=== PATIENT | male | born 1985 | race African-American/Black ===

== ENCOUNTER 2019-07-10 21:40 | Emergency (ER) | payer MEDICAID ==
[~2019-07-10] VITALS: Ht 180.3 cm; Wt 74.8 kg
[~2019-07-10 21:40] MED LIST: AUGMENTIN 875-1 EAC1 ORAL; IBUPROFEN600 MG ORAL
[2019-07-10 22:00] VITALS: BP 140/92
--- NOTE | 2019-07-10 22:00 | NUR ---
ED Nurse Note: Patient brought in by ambulance [id number] from home d/t abdominal pain for 3 days. Patient reports coughing up bright red blood earlier today. Patient aao x 4 and ambulatory with steady gait. Patient placed in gown and satellite project site monitor. IV established on right AC 18g, asymptomatic, intact, and patent. Patient in stable condition.
--- NOTE | 2019-07-10 22:08 | NUR ---
ED Nurse Note: Urine and blood collected and sent to lab.
[2019-07-10 22:22] LABS: APPEARANCE,URINE CLEAR; BASOPHILS % (AUTO) 1.3 % (0.0-2.0); BILIRUBIN, URINE NEGATIVE (NEGATIVE); EOSINOPHILS % (AUTO) 0.7 % (0.0-3.0); GLUCOSE, URINE (UA) NEGATIVE (NEGATIVE); HEMATOCRIT 48.8 % (42.0-52.0); HEMOGLOBIN 15.8 G/DL (14.2-18.0); KETONES,URINE 1+ (NEGATIVE); LEUKOCYTE ESTERASE ,URINE 1+ (NEGATIVE); LYMPHOCYTES % (AUTO) 29.3 % (20.0-45.0); MEAN CORPUSCULAR VOLUME 100 FL (80-99); MONOCYTES % (AUTO) 7.1 % (1.0-10.0); NEUTROPHILS % (AUTO) 61.6 % (45.0-75.0); NITRITE,URINE NEGATIVE (NEGATIVE); PH,URINE 6.5 (4.5-8.0); PLATELET COUNT 131 K/UL (150-450); PROTEIN,URINE 2+ (NEGATIVE); RED BLOOD COUNT 4.86 M/UL (4.70-6.10); RED CELL DISTRIBUTION WIDTH 13.2 % (11.6-14.8); UROBILINOGEN,URINE 4 MG/DL (0.0-1.0); WHITE BLOOD COUNT 6.4 K/UL (4.8-10.8)
--- NOTE | 2019-07-10 22:28 | NUR ---
ED Nurse Note: ERMD at bedside.
[2019-07-10 22:29] LABS: COLOR,URINE YELLOW
[2019-07-10 22:36] LABS: ANION GAP 14 mmol/L (5-15); BLOOD UREA NITROGEN 7 mg/dL (7-18); CALCIUM 9.6 MG/DL (8.5-10.1); CARBON DIOXIDE 25 MMOL/L (21-32); CHLORIDE 102 MMOL/L (98-107); CREATININE 0.9 MG/DL (0.55-1.30); POTASSIUM 3.8 MMOL/L (3.5-5.1); SODIUM 141 MMOL/L (136-145)
--- NOTE | 2019-07-10 22:36 | Emergency Room Report ---
History of Present Illness General Chief Complaint: Gastrointestinal Bleed Source: Patient Present Illness HPI Disclaimer: Please note that this report is being documented using [employer] technology. This can lead to erroneous entry secondary to incorrect interpretation by the dictating instrument. HPI: 34-year-old male history of alcohol abuse presents for evaluation of bloody stools and bloody vomitus. Patient states he typically drinks beer daily but over the past 3 days has been on a vargas drinking hard liquor. He has been vomiting and had an episode of blood-tinged sputum earlier today and over the past few days. He also noted some bright red bleeding in the toilet bowl 3 days ago that is now resolved. He denies abdominal pain, nausea, vomiting currently. Last drink was yesterday. Has not been eating or drinking much and feels some what dehydrated. Otherwise denies any fevers, chills, cough , shortness of breath, chest pain, abdominal pain, diarrhea, back pain. No history of pancreatitis or hepatitis. No history of esophageal varices. He does not take anticoagulants. Came in to get these 2 episodes of bleeding checked out. PMH: Alcohol abuse PSH: Denies Allergies: Denies Social Hx: Alcohol abuse COVID-19 risk:Travel to affect: No Allergies: Coded Allergies: No Known Allergies (Unverified , 05/24/19) Nursing Documentation-PMH Past Medical History: No Stated History Hx Cardiac Problems: No Hx Hypertension: No Hx Pacemaker: No Hx Asthma: No Hx COPD: No Hx Diabetes: No Hx Cancer: No Hx Gastrointestinal Problems: No Hx Dialysis: No History Of Psychiatric Problem: No Hx Neurological Problems: No Hx Cerebrovascular Accident: No Hx Seizures: No Review of Systems All Other Systems: negative except mentioned in HPI Physical Exam Vital Signs Date Time Temp Pulse Resp B/P (MAP) Pulse Ox O2 Delivery O2 Flow Rate FiO2 07/10/19 21:36 97.7 89 18 142/95 (111) 98 Room Air General: Awake and alert, no acute distress HEENT: NC/AT. EOMI. Cardiovascular: RRR. S1 and S2 normal. No murmur appreciated Resp: Normal work of breathing. No cough, wheezing or crackles appreciated Abdomen: Abdomen is soft, nondistended. Nontender Skin: Intact. No abrasions, laceration or rash over the exposed skin MSK: Normal tone and bulk. Moving all extremities. No obvious deformity. Neuro: Awake and alert. Mentating appropriately. Medical Decision Making Diagnostic Impression: Primary Impression: GI bleed Additional Impression: UTI (urinary tract infection) ER Course 34-year-old male with history of alcohol abuse presents for evaluation of blood- tinged sputum as well as 1 episode of bright red blood per rectum 3 days ago now resolved. He is in no acute distress, has stable vital signs, benign abdominal exam. Differential includes was not limited to gastritis, gastroenteritis, hepatitis, pancreatitis, esophageal varices, Elle-Suarez tear , effects of alcohol, hemorrhoids. Overall he is well-appearing. Will obtain labs to evaluate hemoglobin levels to assess for major bleeding though very low on the differential at this point. Do believe there is likely a Elle-Suarez tear which is now apparently resolved. Laboratory Tests Test 07/10/19 22:00 White Blood Count 6.4 K/UL (4.8-10.8) Red Blood Count 4.86 M/UL (4.70-6.10) Hemoglobin 15.8 G/DL (14.2-18.0) Hematocrit 48.8 % (42.0-52.0) Mean Corpuscular Volume 100 FL (80-99) H Mean Corpuscular Hemoglobin 32.4 PG (27.0-31.0) H Mean Corpuscular Hemoglobin Concent 32.3 G/DL (32.0-36.0) Red Cell Distribution Width 13.2 % (11.6-14.8) Platelet Count 131 K/UL (150-450) L Mean Platelet Volume 10.3 FL (6.5-10.1) H Neutrophils (%) (Auto) 61.6 % (45.0-75.0) Lymphocytes (%) (Auto) 29.3 % (20.0-45.0) Monocytes (%) (Auto) 7.1 % (1.0-10.0) Eosinophils (%) (Auto) 0.7 % (0.0-3.0) Basophils (%) (Auto) 1.3 % (0.0-2.0) Prothrombin Time 10.2 SEC (9.30-11.50) Prothrombin Time INR 1.0 (0.9-1.1) Activated Partial Thromboplast Time 25 SEC (23-33) Urine Color Yellow Urine Appearance Clear Urine pH 6.5 (4.5-8.0) Urine Specific [place] 1.010 (1.005-1.035) Urine Protein 2+ (NEGATIVE) H Urine Glucose (UA) Negative (NEGATIVE) Urine Ketones 1+ (NEGATIVE) H Urine Blood Negative (NEGATIVE) Urine Nitrite Negative (NEGATIVE) Urine Bilirubin Negative (NEGATIVE) Urine Urobilinogen 4 MG/DL (0.0-1.0) H Urine Leukocyte Esterase 1+ (NEGATIVE) H Urine RBC 2-4 /HPF (0 - 0) H Urine WBC 10-15 /HPF (0 - 0) H Urine Squamous Epithelial Cells None /LPF (NONE/OCC) Urine Bacteria Moderate /HPF (NONE) H Sodium Level 141 MMOL/L (136-145) Potassium Level 3.8 MMOL/L (3.5-5.1) Chloride Level 102 MMOL/L (98-107) Carbon Dioxide Level 25 MMOL/L (21-32) Anion Gap 14 mmol/L (5-15) Blood Urea Nitrogen 7 mg/dL (7-18) Creatinine 0.9 MG/DL (0.55-1.30) Estimate Glomerular Filtration Rate > 60 mL/min (>60) Glucose Level 76 MG/DL (74-106) Calcium Level 9.6 MG/DL (8.5-10.1) Total Bilirubin 0.9 MG/DL (0.2-1.0) Aspartate Amino Transferase (AST) 78 U/L (15-37) H Alanine Aminotransferase (ALT) 105 U/L (12-78) H Alkaline Phosphatase 80 U/L (46-116) Total Protein 7.9 G/DL (6.4-8.2) Albumin 4.5 G/DL (3.4-5.0) Globulin 3.4 g/dL Albumin/Globulin Ratio 1.3 (1.0-2.7) Lipase 128 U/L (73-393) Reevaluation Time: 23:01 Last Vital Signs Date Time Temp Pulse Resp B/P (MAP) Pulse Ox O2 Delivery O2 Flow Rate FiO2 07/10/19 22:00 92 20 Room Air 07/10/19 21:36 97.7 142/95 (111) 98 Reevaluation Impression Labs have returned within normal limits. No white count, no anemia, LFTs within normal limits aside from slight elevation shows slight elevation but just outside the upper limit of normal. Normal renal function and balanced electrolytes. Lipase within normal limits as are clotting factors. Urinalysis shows moderate bacteria and 10-15 white cells as well as 1+ leuk esterase. He reports intermittent urinary frequency. Will treat with urinary tract infection with Keflex. We will also discharge on famotidine likely for alcohol induced gastritis and a Elel-Suarez tear to explain his upper GI bright red blood. He is otherwise well-appearing stable vital signs no acute distress. I provided resources in his discharge paperwork to followed up on an outpatient basis regarding his alcohol abuse. He can return to the emergency department any new or worsening symptoms. Disposition: HOME, SELF-CARE Condition: Stable Scripts Famotidine* (Pepcid 20mg tablet*) 20 Mg Tablet 20 MG ORAL DAILY, #30 TAB 0 Refills Prov: Kolton Jolly MD 07/10/19 Cephalexin* (KEFLEX*) 500 Mg Capsule 500 MG ORAL EVERY 12 HOURS, #14 CAP 0 Refills Prov: Kolton Jolly MD 07/10/19 Kolton Jolly MD Jul 10, 2019 22:36
[2019-07-10 22:40] LABS: ALANINE AMINOTRANSFERASE 105 U/L (12-78); ALBUMIN 4.5 G/DL (3.4-5.0); ALBUMIN/GLOBULIN RATIO 1.3 (1.0-2.7); ALKALINE PHOSPHATASE 80 U/L (46-116); ASPARTATE AMINO TRANSFERASE 78 U/L (15-37); BILIRUBIN,TOTAL 0.9 MG/DL (0.2-1.0)
[2019-07-10] MEDS ORDERED: FAMOTIDINE20 MG ORAL (22:46)
[2019-07-10] MEDS ORDERED: CEPHALEXIN500 MG ORAL (22:46)
[2019-07-10 23:20] VITALS: BP 138/89
--- NOTE | 2019-07-10 23:20 | NUR ---
ER DISCHARGE NOTE: Patient is cleared to be discharged per ERMD, pt is aox4, on room air, with stable vital signs. pt was given dc and prescription instructions, pt was able to verbalize understanding, pt id band and iv site removed intact without complications. pt is able to ambulate with steady gait. pt took all belongings. pt stable upon discharge.
== END 2019-07-10 23:20 | disposition home or self-care (01) ==
LOC: EDBD 21:40 → EMR 22:00
DX: K92.2 Gastrointestinal hemorrhage, unspecified (principal); N39.0 Urinary tract infection, site not specified
CPT/HCPCS: 36415; 80053; 81003; 83690; 85025; 85610; 85730; 86850; 86900; 86901; 87086; 96360; J7030; Z7502; 99284